=== PATIENT | female | born 1935 | race Caucasian/White ===

== ENCOUNTER 2021-09-02 07:50 | Inpatient (IN) | payer OTHER ==
[~2021-09-02] VITALS: Ht 172.7 cm; Wt 68.5 kg
[2021-09-02 13:15] VITALS: BP 132/64
[2021-09-02] MEDS ORDERED: NAMENDA 5 MG TAB5 M1 PO (14:24)
[2021-09-02] MEDS ORDERED: BUSPIRONE HCL10 MG PO (14:25)
[2021-09-02] MEDS ORDERED: DESYREL150 MG PO (14:26)
[2021-09-02] MEDS ORDERED: METFORMIN HCL500 M3 PO (14:27)
[2021-09-02] MEDS ORDERED: SEROQUEL 25 MG25 MG PO ×2 (14:28→14:32)
[2021-09-02] MEDS ORDERED: LOVENOX40 MG/0.4 PO (14:29)
[2021-09-02] MEDS ORDERED: AMLODIPINE-ATO1 EAC4 PO (14:30)
[2021-09-02] MEDS ORDERED: SERTRALINE HCL100 MG PO (14:31)
--- NOTE | 2021-09-02 14:59 | NUR ---
Pt admitted from [facility] from home being cared for by son/DPOA and . Hx of Covid positive 08/21/21, completed isolation. Son reports pt seen by neurologist in 08/06 and "passed tests with flying colors" but has deteriotated past 2 months with increased agitation, wandering and aggression. Pt also with hx of HTN, DM2. Pt alert and orientated to name only. Confused speech with occassional coherent statements. No speech/behavior suggestive of SI/HI. Breath sounds clear without s/o resp distress. Reg HR auscultated. Color pink with brisk capillary refill and palpable peripheral pulses. No edema noted. Continent of yellow urine. Active bowel sounds over soft, rounded abdomen. Unk last BM. Ambulates with slow, shuffling gait. On fall precautions d/t 2 falls in past week. Able to eat independently. Sitting in day room without s/o distress.
--- NOTE | 2021-09-03 03:41 | NUR ---
PATIENT CARE WAS RESUMED AT 1900. SHE WAS AT THE [facility] AREA AND SHE REQUESTED TO GO TO HER ROOM. SHE WAS ASSISTED TO BED. SHE DENIES PAINS/AVH/SI/HI. LUNGS ARE CLEAR BS ACTIVE X4 QUADS. BED IS LOW, LOCKED AND ALARMED. YELLOW TOP AND SOCKS ARE ON. SHE IS A MINI ASSIST WITH [facility]. SHE TOOK HER MEDDS WHOLE WITH ICE CREAME. [id number] CHECKS ARE ACTIVE CONTINUE CARE
--- NOTE | 2021-09-03 04:10 | NUR ---
PATIENT WAS SEEN SLIDING OUT OF HER RECLINER DURING AM ROUNDS IN HER ROOM AND WAS ASSISTED BACK TO BED. [id number] CHECK IS ONGOING CONTINUE TO MONITOR
[2021-09-03 05:30] LABS: ABSOLUTE NEUTROPHILS 3.4 thou/uL (1.4-8.2); BASOPHILS 0.4 % (0.0-2.0); EOSINOPHILS 3.7 % (0.0-3.0); HEMATOCRIT 37.2 % (37.0-47.0); HEMOGLOBIN 12.4 gm/dL (12.0-15.0); LYMPHOCYTES 18.2 % (24.0-44.0); MCH 29.2 pg (26.0-34.0); MCHC 33.3 g/dL (28.0-37.0); MCV 87.6 fL (80.0-100.0); MONOCYTES 9.4 % (1.0-8.0); PLATELET COUNT 379 thou/uL (150-400); POLYS 68.3 % (36.0-66.0); RBC 4.25 mil/uL (4.20-5.00); RDW 15.2 % (10.5-14.5)
[2021-09-03 06:19] LABS: CHOLESTEROL 187 mg/dL (<200); HDL CHOLESTEROL 68 mg/dL (>40); LDL CHOLESTEROL 89 mg/dL (<100); TC:HDL 2.8 Ratio (Not establshd); TRIGLYCERIDE 152 mg/dL (<150); VLDL 30 mg/dL (<40)
[2021-09-03 06:28] LABS: SERUM ASSESSMENT Clear
[2021-09-03 06:38] LABS: ALBUMIN 3.6 g/dL (3.4-5.0); CALCIUM 9.7 mg/dL (8.5-10.1); CREATININE 1.2 mg/dL (0.6-1.0); POTASSIUM 3.9 mmol/L (3.5-5.1); TOTAL BILIRUBIN 0.3 mg/dL (0.2-1.0); TOTAL PROTEIN 6.8 g/dL (6.4-8.2)
[2021-09-03 09:00] VITALS: BP 160/77
[2021-09-03 10:10] VITALS: BP 160/77
--- NOTE | 2021-09-03 16:15 | NUR ---
Pawel refused her 1500 scheduled seroquel by another RN this afternoon. Pt then refused when this RN also attempted to give crushed in ice cream. Pt has been yelling out, very restless, and on second attempt of trying to give scheudled seroquel, pt tried to throw the ice cream but this RN was able to catch it. Pt was also aggressively grabbing at this RN. Dr. Vance paged and order received for one time dose of zyprexa 7.5mg IM, given per SEP. Pt's nurse Bruna drew.
--- NOTE | 2021-09-03 17:28 | NUR ---
Assumed pt care this morning from overnight shift. Pt presented alert and oriented to self only, and was difficult to reorient to her environment. Pt stated "a little bit" when asked about depression and anxiety. When asked about hallucinations, pt stated that she "saw a little girl last night." When asked about si/hi, pt denied. Last BM 09/01 per pt report. Slight pain in hips reported, but declined medication. Started on diabetic diet in addition to her heart healthy diet today. Metformin and losartan held per WATER SERVER order. No further concerns.
--- NOTE | 2021-09-03 18:44 | NUR ---
JOSH and Dr. Vance participated in a phone call with the Pt's DPOA, Laura Merino [phone]. Laura was able to give some background on the Pt. Pt was born and raised in [place]. Pt has 3 sibilings. 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 Pt has been 2x and has 1 child. Pt has been to her current for 51 years. Pt has had 5 falls over the last 3 years. Pt and her lived at [facility] for 3 years then moved in with her son Laura. Pt has no prior inpatient psychiatric hospital stays. Pt had no outpt mental health services prior to this admission. Laura reported Pt did not have a hx of susbtance abuse or ETOH abuse. Laura stated he would like to place the Pt as he is unable to handle the Pt in the home. Laura was not sure of the Pt's financial situation. JOSH explained Medicaid qualifications and informed a screening could be completed for the Pt. Laura was in agreement. JOSH provided education on how LTC is paid. Laura was confused and believed Medicare paid for LTC. JOSH provided education what Medicare pays for. Laura had no further questions or concerns. JOSH did send a welcome email to laura at [email or web address] JOSH did send an email to Kimber at [facility] to request a Medicaid screening on the Pt. JOSH will continue to follow.
[2021-09-03 19:23] VITALS: BP 120/62
--- NOTE | 2021-09-03 22:43 | NUR ---
At onset of shift nurse manager pt was sitting in bin chair in day room. Pt appeared calm. This shift pt was alert and oriented only to self. Pt stated she did not know the date and pt believed she was in [place]. Pt was somewhat compliant with medication. RN mixed meds in applesauce; pt would spit out applesauce but after a few attempts pt swallowed all medication. Pt was overall calm and pleasant. Pt made several delusional statements and was confused. Pt was restless at times. Pt was put to bed but was observed sitting up in bed pulling at her sheets. RN assisted pt with laying back down. Pt does not answer psych questions; no signs of SI, HI or distress. Pt endorsed pain in her pelvic region. Pt received tylenol with her HS meds. Pt is high fall risk. Fall precautions are in place. Will continue to monitor.
[2021-09-04 06:10] LABS: HEMATOCRIT 32.9 % (37.0-47.0); HEMOGLOBIN 11.3 gm/dL (12.0-15.0); MCH 30.1 pg (26.0-34.0); MCHC 34.2 g/dL (28.0-37.0); MCV 87.8 fL (80.0-100.0); RBC 3.74 mil/uL (4.20-5.00); RDW 15.6 % (10.5-14.5); WBC 7.8 thou/uL (4.0-11.0)
[2021-09-04 06:31] LABS: CALCIUM 9.4 mg/dL (8.5-10.1); CREATININE 1.2 mg/dL (0.6-1.0); POTASSIUM 4.2 mmol/L (3.5-5.1)
[2021-09-04 07:09] LABS: GLYCOHEMOGLOBIN (HGB A1C) 7.4 % (4.8-5.6)
[2021-09-04 12:40] VITALS: BP 116/57
--- NOTE | 2021-09-04 14:31 | NUR ---
Assumed the patient at 0700, patient is alert and oriented to person, pleasant, calm and cooperative. Patient had big BM today using pivot to bedside comode, ate about 50-60% of meals. Sit up in the bin chair most of the day, will continous monitoring.
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
--- NOTE | 2021-09-05 05:30 | NUR ---
Assumed care of pt at 1900. Pt calm et cooperative this shift. Took medications crushed in pudding without difficulty. Ambulates with assistance of gerichair on this shift. VSWNL. Health assessment with no abnormalities noted this shift. Pt denies SI/HI at present time. Socialized with peers in dayroom watching TV until HS. Currently resting in bed with eyes closed. Will continue to monitor per unit protocol.
[2021-09-05 07:00] VITALS: BP 156/66
[2021-09-05 09:42] VITALS: BP 156/66
--- NOTE | 2021-09-05 10:07 | NUR ---
Alert and orientated to person and place. Denies SI/HI. Interative with peers and staff, participating in group. Calm, cooperative and compliant. Took meds crushed in pudding. Brushed teeth and washed face independently when handed items. Breath sounds clear. Reg HR auscultated. Color pink with brisk capillary refill and palpable peripheral pulses. Brief dry with smear of stool. Active bowel sounds over soft, rounded abdomen. 1 staff assist with toileting. Able to bear wt and transfer with guidance. Currently watching TV with peers. No s/o distress.
[2021-09-05 19:15] VITALS: BP 132/104
--- NOTE | 2021-09-05 21:34 | NUR ---
At onset of overnight babysitter pt was sitting calmly in bin chair in day room. This shift pt was alert and oriented to self. Pt knows she is in a hospital but believes she is in [place]. Pt stated the date was "the 2019 and 2019." Pt stated she does have a little anxiety but could not verbalize what was making her anxious. Pt denied depression stating "I don't let things get me down." Pt has trouble finding words and explained to RN that she'll start a sentence but then "loses the words." Pt denied AVH. Pt was compliant with vital signs and meds crushed in ice cream. Later laying in bed pt told RN she couldn't walk, however pt was able to stand and transfer getting from bin chair to bed and pt was able to move legs to reposition herself in bed. Pt is high fall risk. Fall precautions are in place. Will continue to monitor.
[2021-09-06 09:00] VITALS: BP 152/61
[2021-09-06 12:12] LABS: URINE BILIRUBIN NEGATIVE (Negative); URINE BLOOD NEGATIVE (Negative); URINE CLARITY CLEAR; URINE COLOR YELLOW; URINE GLUCOSE-RANDOM* 1+ (Negative); URINE KETONES NEGATIVE (Negative); URINE LEUKOCYTES-REFLEX NEGATIVE (Negative); URINE NITRITE-REFLEX NEGATIVE (Negative); URINE PROTEIN (DIPSTICK) NEGATIVE (Negative); URINE UROBILINOGEN 0.2 E.U./dl (0.2-1.0)
--- NOTE | 2021-09-06 12:25 | NUR ---
Alert and orientated to name only this AM. States she is in [place]. Denies SI/HI. Calm and cooperative, compliant with meds. Took whole this AM. Confused speech. Breath sounds clear. Reg HR auscultated. Color pink with brisk capillary refill and palpable peripheral pulses. Continent of yellow urine per commode this AM with hesistancy approximately 200-300 cc. Active bowel sounds over soft, rounded abdomen. Able to stand and bear wt. Ambulated to room with walker with slow, steady gait. Urinated approximately 200cc with hesistancy. Bladder scan done after void--370 cc. Pt reporting some discomfort with void. Dr. Albarran notified.
[2021-09-06 19:33] VITALS: BP 133/47
[2021-09-06 22:33] VITALS: BP 147/64
[2021-09-06 23:33] VITALS: BP 133/47
--- NOTE | 2021-09-07 02:29 | NUR ---
At onset of aerial sprayer pt was sitting in bin chair in day room. This shift pt was alert and oriented to self. Pt believes she is [place]. Pt appears to know she is in a hospital. Pt was compliant with medications whole and vital signs. Pt talked with RN, again stating that she is frustrated she cannot find words at time. Pt asked for her son's name to be written down. RN wrote the number down and told pt she can call her son in the morning, as it was after 2100. Pt endorsed some anxiety. Denied SI and AVH. Pt is high fall risk. Fall precautions are in place. At approx 1033, pt's bed alarm sounded. RN entered pt's room and observed pt on one knee next to her bed and night stand using a tissue from the tissue box on her night stand. Pt was helped up to sit on her bed. RN assessed pt. Pt denied hitting her head and denied falling. However did have a small bleeding skin tear on her knee from being on the ground. RN cleaned and dressed the skin tear. Pt denied being pain. When asked why she was on the floor pt stated "I eased myself there, but my legs were not strong enough to get back in bed." Post fall protocol was still followed. Steve cano, hospitalist, and studio operations engineer in charge notified.
[2021-09-07 09:05] VITALS: BP 151/74
[2021-09-07 09:21] VITALS: BP 151/74
--- NOTE | 2021-09-07 14:04 | NUR ---
Assumed pt care this morning from overnight shift. Pt presented restless but pleasant during this time, and was frequently redirected to stay in gerichair and assisted with repositioning multiple times. Covered pt with blanket as pt voiced feeling cold. Pt expressed thanks. Pt denied depression and anxiety during this time. Pt denied hallucinations, though could be noted talking to self intermittently. Pt voiced back pain, and was given lidocaine patch per provider order for this that provided partial pain relief. Pt denied si/hi at this time. Pt took all medications crushed in yogurt and tolerated all well. Pt continuously assisted with repositioning, and reminded to use walker if getting up from chair. Due to pt safety concerns, lap lonnie placed on pt, as pt would get out of chair and not know where she wanted to go. Pt would do this frequently, and would not listen to redirection from staff at this time. Assisted with repositioning again, and explained purpose of lab lonnie to pt. Lung sounds clear. Bowel sounds active. No further concerns at this time.
[2021-09-07 16:06] LABS: SYPHILIS AB Non Reactive (Non Reactive)
[2021-09-07 19:22] VITALS: BP 134/57
--- NOTE | 2021-09-08 01:02 | NUR ---
At onset of awake overnight counselor pt was sitting in bin chair in day room. This shift pt was alert and oriented only to self initially. Pt was compliant with medication and vital signs. Pt spoke with RN for some time. RN oriented pt to being in the hospital and pt was surprised. Pt again talked about how she has difficulty finding words. However, while sitting in the day room, pt pointed to other patients and told RN how long each patient had been in the hospital. Pt was able to correctly identify peers that had only been on the unit for one day and another peer that had been on the unit for three days. Pt is able to pay attention to her surroundings. Pt expressed frustration that she has to sit in a chair for so long and is not allowed to move around. RN explained to pt that her safety comes first and her gait is unsteady. RN explained that physical therapy has been working with her some. Pt endorsed anxiety and some depression. Pt became tearful when speaking about how she is worried she won't make it home again and she wants to see her son. Pt apologized to RN for taking up her time and apologized for needed so much assistance. RN assured pt that staff are happy to help her and she should not hestitate to make her needs known. RN offered emotional support. Pt is a high fall risk. Fall precautions are in place. Will continue to monitor.
[2021-09-08 08:05] VITALS: BP 131/78
[2021-09-08 09:27] VITALS: BP 131/78
--- NOTE | 2021-09-08 17:08 | NUR ---
Assumed pt care from overnight shift this am. Pt presented alert and oriented to self and place during this time. Pt denied depression and voiced mild anxiety from being in hospital per self report. Pt denied hallucinations, though could occasionally be noted to speak to self and have moments of less clarity, forgetting where she was and stating that she saw things in corners and that she heard dogs barking at times. Pt denied si/hi at this time. Reported pain in legs and back. Lidocaine patch applied. Spoke to Dr. Albarran- scheduled tylenol started to help with pt pain management. Pt voiced thanks at this time. Pt toileted frequently during shift. UA collected via hat as pt voiced urgency to urinate. Sent to lab. No further concerns at this time.
--- NOTE | 2021-09-08 18:21 | NUR ---
JOSH recieved a call from Kimber at [employer]. Kimber informed she reached out the DPOA. The DPOA stated the Pt had resources and he did not wish to complete a medicaid application. JOSH then reached out to Westley concerning the matter. Westley was confused on recieving a phone call from [employer]. JOSH reminded him of the initial phone call where Westley was unsure of the Pt's finances. Westley stated he could not hear when on that phone call. JOSH encouraged Westley that if that is ever the case he should let us know so that the phone call can be adjusted. JOSH informed that our team wants families to be properly informed through out the Pt's stay on the [facility]. JOSH again asked Westley if he was still intrested in placing the Pt. Westley confirmed the plan. Westley then stated that he needs an update on the Pt and to "know her status". JOSH attempted to provide a status update on the Pt and encouraged Westley to call and speak with the nurse if he had other question concerning the Pt's day to day. Westley stated he has been speaking to the nurses daily. JOSH went on to discuss placement of the Pt. Westley expressed confusion. JOSH explained the placement process to Westley. JOSH gave westley the option of JOSH sending out mass referrals or Westley providing specific facilities for referrals to be sent. Westley stated he would like JOSH to send out mass referrals. Westley also reported working with someone from [facility] on locating placement. JOSH provided emotional support to Westley during this time. There were no other questions or concerns. JOSH will continue to follow
[2021-09-08 19:48] VITALS: BP 116/50
[2021-09-08 19:50] VITALS: BP 116/50
[2021-09-08 20:05] LABS: URINE BILIRUBIN NEGATIVE (Negative); URINE BLOOD NEGATIVE (Negative); URINE CLARITY CLEAR; URINE COLOR YELLOW; URINE GLUCOSE-RANDOM* NEGATIVE (Negative); URINE KETONES NEGATIVE (Negative); URINE LEUKOCYTES-REFLEX NEGATIVE (Negative); URINE NITRITE-REFLEX NEGATIVE (Negative); URINE PROTEIN (DIPSTICK) NEGATIVE (Negative); URINE SPECIFIC GRAVITY >= 1.030 (1.005-1.035); URINE UROBILINOGEN 0.2 E.U./dl (0.2-1.0)
--- NOTE | 2021-09-09 04:44 | NUR ---
[facility] WAS RESUMED AT 1900. SHE WAS SITTING IN THE DAY AREA SOCIALIZING WITH OTHER.SHE IS CONFUSED AND UNDIRECTABLE. TOOK HER MEDS WHOLE. LUNGS ARE CLEAR BS ACTIVE X4 QUAD. BED IS LOW, LOCKED AND ALARMED/ SHE DENIES PAINS/SI/AVH/HI.SHE CONTINUE TRIES TO GET OUT OF BED AND WAS BROUGHT TO THE DAY AREA.ALARME IN PLACE. YELLOW TOP AMD SOCKS ARE ON. CONTINUE CARE
[2021-09-09 07:00] VITALS: BP 148/58
--- NOTE | 2021-09-09 11:24 | NUR ---
Referral sent to the following: [facility]
--- NOTE | 2021-09-09 12:15 | NUR ---
PATIENT ALERT AND ORIENTED X 1 - SITTING IN DINING ROOM - GOOD APPETITE - HAS BACK PAIN DISCOMFORT - SCHEDUED TYLENOL GIVEN - LIDODERM PATCH APPLIED AT 9AM ON LOWER BACK. COMPLIANT WITH MEDICATIONS - BECAME VERY TIRED AFTERWARDS AND STAFF ASSISTED TO BED. PATIENT MUMBLES AND MOANS TO HERSELF. WHEN QUESTIONED DOES NOT ANSWER. SLEPT FOR SEVERAL HOURS AFTER BREAKFAST - AWOKEN FOR LUNCH AND ESCORTED AND ASSISTED TO DINING VEGA. PATIENT NEEDS TO BE MONITORED CLOSELY. FOUND PATIENT SITTING ON COMMODE WHEN GETTING UP PATIENT UP FOR LUNCH. UNSTEADY AND ADVISED PATIENT TO LET STAFF KNOW - PATIENT BLOOD SUGARS WERE 142 AT BREAKFAST AND 97 AT LUNCH. VITALS WNL WHEN TAKEN. WILL CONTINUE TO MONITOR PATIENT FOR SAFETY AND ADDRESS ANY CONCERNS OR NEEDS ACCORDINGLY.
[2021-09-09 18:56] VITALS: BP 128/58
[2021-09-09 19:40] VITALS: BP 128/58
--- NOTE | 2021-09-10 00:17 | NUR ---
PATIENT CARE WAS RESUMED AT 1900. HE IS SHE AMBULATES WITH ASSISTANCE AND WALKER. LUNGS ARE CLEAR BS ACTIVE X4 QUAD. SHE IS CONTININET OF BOWEL AND BLADDER. DENIES PAINS/SI/AVH/HI. ABLE TO VERBALIZE HER CONCERNS.TOOK HER MEDS WHOLE. YELLOW SOCKS AND TOP ARE WON. BED IS LOW, LOCKED AND ALARMED.Q12 MINUTES CHECK ONGOING.
[2021-09-10 10:48] VITALS: BP 117/98
--- NOTE | 2021-09-10 11:53 | NUR ---
PATIENT WAS UP, IN GERICHAIR, AND OUT ON THE UNIT, SITTING IN DAYROOM WHEN CARE ASSUMED. PATIENT IS ALERT AND ORIENTED X 1-2 ABLE TO VOICE NEED. SHE IS FORGETFUL, AND CONFUSED AT TIMES. PATIENT TOOK ALL MEDICATION WHOLE WITHOUT DIFFICULTY, SHE IS EATING MEALS, AND DRINKING FLUID WELL. PATIENT DENIES SUICIDAL/HOMICIDAL IDEATION, FOR DEPRESSION, SHE STATES "SOME, EVERYONE HAS DEPRESION ONCE IN A WHILE", DENIES ANXIETY. RATES BACK PAIN 8/, PAIN PATCH APPLIED, PATIENT GETS SCHEDULE TYLENOL TO BACK PAIN. PATIENT HAD BOWEL MOVEMENT THIS MORNING. AFFECT SAD, MOOD IS CALM, COOPERATIVE WITH CARE. SON (SUNNY) CALLED FOR UPDATE, UPDATE PROVIDED. PATIENT IS CURRENTLY EATING LUNCH, ABLE TO FEED SELF. NO SIGN OF ACUTE DISTRESS NOTED AT THIS TIME, WILL MONITOR FOR SAFETY.
--- NOTE | 2021-09-10 16:22 | NUR ---
JOSH recieved a VM from Jackelin Anderson at [facility]. Jackelin stated that they are able to accept the Pt. JOSH did call back concerning the matter. JOSH was unable to speak with Jackelin and left a message requesting a call back. JOSH also recieved a call from Apolonia, , from [facility] [place]. Apolonia requested a Zoom assessment with the Pt. This was set up for 09/11/2021 @10am. JOSH did call the Pt's DPOA, Westley, concerning the matter. JOSH left a message requesting a call back on the matter. JOSH will follow up
[2021-09-10 19:50] VITALS: BP 117/98
--- NOTE | 2021-09-11 02:56 | NUR ---
PATIENT CARE WAS RESUMED AT 1900.SHE IS SITTING AT THE TABLE IN DAY AREA. IS ABLE TO COMMUNICATE HER NEEDS.SHE TOOK HER MEDS WHOLE. DENIES PAINS/SI/AVH/HI. LUNGS ARE CLEAR BS ACTIVE X4 QUADS. SHE IS CONTININET OF BOWEL AND BLADDER.YELLOW TOP AND SOCKS ARE ON. [id number] CHECK IS ON GOING. BED IS LOW , LOCKED AND ALARMED.
[2021-09-11 07:45] VITALS: BP 171/79
[2021-09-11 09:57] VITALS: BP 143/94
--- NOTE | 2021-09-11 11:40 | NUR ---
RESUMMED CARE FROM OVERNIGHT SHIFT THIS AM, PATIENT ALERT ORIENTED ALERT TO SELF AND SITUATION. PATIENT ATE BREAKFAST TOOK MEDICATION WITHOUT INCIDENCE. PATIENT DENIES SI/HI/AH/VH AT PRESENT PATIENT STATES SHE HAS HIGH DEPRESSION. SHE RATES A 11 AND ANXIETY RATES IT AT A 11. PATIENTS ABDOMEN SOFT BOWEL SOUNDS PRESENT. PATIENTS LUNGS CLEAR PATIENT IS COMPLAINING OF LOWER SACRAL PAIN IN BACK. PATIENT GETS SCHEDULED TYLENOL AND GETS A LIDOCAINE PATCH FOR PAIN. PATIENT CALM COOPERATIVE NO BEHAVIORS NOTED WILL CONTINUE TO MONITOR PATIENT FOR SAFETY AND BEHAVIORS.
--- NOTE | 2021-09-11 16:19 | NUR ---
Pt completed a video assessment with [facility]. Marcia stated they would be able to accept the Pt Friday 09/15. Apolonia sent over the physician assessment form for completion. The form was completed and emailed back to Apolonia. JOSH will follow up with Marcia concerning discharge on Wednesday.
[2021-09-11 19:50] VITALS: BP 136/58
--- NOTE | 2021-09-12 05:13 | NUR ---
Assumed care of pt at 1900. Pt calm et cooperative this shift. Took medications crushed in pudding without difficulty. Ambulates with assistance of gerichair. Socialized with peers in dayroom watching TV until HS. VSWNL. Health assessment with no abnormalities noted this shift. Pt denies SI/HI at present time. Currently resting in bed with eyes closed. Will continue to monitor per unit protocol.
[2021-09-12 09:48] VITALS: BP 134/76
--- NOTE | 2021-09-12 11:13 | NUR ---
JOSH and Dr. Carlson spoke with Westley concerning discharge. Westley was at [facility] making the final arrangements for the Pt. Apolonia was also in the room with Westley. Apolonia informed they are able to accept on 09/15 and the Pt would need to be at the facility by 2pm. Westley requested the Pt be transported. Discharge was set for 09/15/2021 @ 1130 am. Pt will be transported via [facility]. The tracking #[id number].
--- NOTE | 2021-09-12 11:30 | NUR ---
Alert and orientated to name only. Denies SI/HI. Confused speech at times, other times coherent. Breath sounds clear. Reg HR auscultated. Color pink with brisk capillary refill and palpable peripheral pulses. Active bowel sounds over soft, rounded abdomen. Continent of yellow urine per commode. Able to stand and take several steps without difficulty, steady gait. Currently sitting in day room without s/o distress.
[2021-09-12 19:51] VITALS: BP 112/51
--- NOTE | 2021-09-13 05:44 | NUR ---
Assumed care of pt at 1900. Pt calm et cooperative this shift. Took medications crushed in pudding without difficulty. Ambulates with assistance of gerichair. Socialized in dayroom with peers watching TV until HS. VSWNL. Health assessment with no abnormalities noted this shift. Pt denies SI/HI at present time. Currently resting in gerichair with eyes open in dayroom. Will continue to monitor per unit protocol.
[2021-09-13 10:43] VITALS: BP 167/75
[2021-09-13 11:18] VITALS: BP 124/60
--- NOTE | 2021-09-13 11:37 | NUR ---
Alert and orientated to person and time. Conversive at times. Denies SI/HI. Breath sounds clear. Reg HR auscultated. Color pink with brisk capillary refill and palpable peripheral pulses. Yellow urine per commode. Active bowel sounds over soft rounded abdomen. States pain is gone. Ambulates with slow steady gait but spends most of time in chair. Currently sitting in dining room without s/o distress.
[2021-09-13 20:06] VITALS: BP 136/50
--- NOTE | 2021-09-14 03:10 | NUR ---
PT HAS BEEN RESTING/SLEEPING IN BED WITHOUT ACUTE DISTRESS.PLEASANTLY CONFUSED.A/O TO SELF.FOLLOWS COMMMANDS APPROPRIATELY.DENIES SUICIDAL THOUGHTS.DENIES PAIN.HELD MIDNIGHT DOSE.AMBULATED WITH STAFF TO THE ROOM.ASSESSMENT COMPLETED DOCUMENTED.
[2021-09-14 08:44] VITALS: BP 162/75
[2021-09-14 08:53] VITALS: BP 162/75
--- NOTE | 2021-09-14 11:05 | NUR ---
RESUMMED CARE FROM OVERNIGHT SHIFT THIS AM, PATIENT IN ROOM RESTING QUIET. PATIENT'S HYGIENE DONE BROUGHT TO DAY ROOM FOR BREAKFAST, ATE WELL TOOK MEDICATION WITHOUT INCIDENCE. PATIENT ALERT ORIENTED TO SELF AND SITUATION, PATIENT DENIES SI/HI/AH/VH AT PRESENT. PATIENTS ABDOMEN SOFT BOWEL SOUNDS PRESENT PATIENTS LUNGS CLEAR. PATIENT CALM COOPERATIVE PARTICIPATES IN GROUPS INTERACTS WITH OTHER PATIENTS APPROPRIATELY. PATIENT HAS LOWER SACRAL BACK PAIN SHE GETS LIDOCAINE PATCH AND SCHEDULED TYLENOL. WILL CONTINUE TO MONITOR PATIENT FOR SAFETY AND BEHAVIORS.
--- NOTE | 2021-09-14 11:44 | NUR ---
CARDIAC EXERCISE PHYSIOLOGIST WEEKLY NOTE---PATIENT APPEARS CALM AND QUIET MAJORITY OF THE TIME. PATIENT ATTENDS GROUPS CONSISTENTLY BUT SOMETIMES SHE DOES NOT ALWAYS PROVIDE FULL PARTICIPATION DUE TO NOT BEING ABLE TO HEAR THAT WELL BUT SHE DOES TRY HER BEST TO DO SO.
--- NOTE | 2021-09-14 16:25 | NUR ---
Updates emailed to Apolonia at [facility] [place]
[2021-09-14 19:31] VITALS: BP 109/53
--- NOTE | 2021-09-15 05:21 | NUR ---
Assumed care of patient from Jennifer VIZCARRA mid-shift. Patient appeared to be sleeping at that time. She is calm and cooperative. No behaviors evident this shift. Patient was observed on the unit earlier and appeared calm and pleasant in her interactions with others. Patient has not voiced SI/HI/AVH. She is compliant with medications.
[2021-09-15 08:00] VITALS: BP 153/76
[2021-09-15] MEDS ORDERED: FLOMAX0.4 MG PO (08:35)
[2021-09-15] MEDS ORDERED: FENOFIBRATE160 MG PO (08:35)
[2021-09-15] MEDS ORDERED: COZAAR100 MG PO (08:36)
[2021-09-15] MEDS ORDERED: NORVASC10 MG PO (08:36)
[2021-09-15] MEDS ORDERED: SEROQUEL 100 M100 MG PO (08:37)
[2021-09-15] MEDS ORDERED: TRAZODONE HCL50 MG PO (08:37)
[2021-09-15] MEDS ORDERED: SERTRALINE HCL25 M1 PO (08:37)
[2021-09-15] MEDS ORDERED: NAMENDA 5 MG TAB5 M1 PO (08:38)
[2021-09-15] MEDS ORDERED: STIMULANT LAXA1 EACH PO (08:38)
[2021-09-15] MEDS ORDERED: METFORMIN HCL500 MG PO (08:39)
[2021-09-15] MEDS ORDERED: TRADJENTA5 MG PO (08:39)
[2021-09-15] MEDS ORDERED: OXYBUTYNIN 5 MG5 M2 PO (08:40)
[2021-09-15 08:52] VITALS: BP 156/76
--- NOTE | 2021-09-15 11:40 | NUR ---
PT ALERT AND ORIENTED TIMES THREE. PT TEARFUL THIS MORNING STATING SHE WANTED TO GO HOME. VSS. PT DENIES SI/HI/AH/VH. PT C/O NAUSEA PRN MEDICATIONS GIVEN WITH GOOD RELEIF. PT INTERACTS WELL WITH STAFF AND PEERS. PT TOLERATES MEDS AND MEALS. PLANS TO DISCHARGE TODAY.
--- NOTE | 2021-09-16 08:33 | D ---
[facility] [place] [address] DISCHARGE SUMMARY Name: AMOL CONLEY Room #: 52-B [facility] IN M.R.#: [id number] Admission: 09/02/21 Attend Phys: Sajan Vance DO Discharge: 09/15/21 Date of : 39 Report #: [id number] THIS REPORT FOR: cc: FAM - Family physician unknown FAM - Family physician unknown Sajan Vance DO ~ DATE OF SERVICE: 09/15/2021 INPATIENT PSYCHIATRIC DISCHARGE SUMMARY ATTENDING PSYCHIATRIST: Sajan Vance D.O. MACHINE FEEDER: Meir Armijo M.D. DISCHARGE DIAGNOSES: 1. F02.81, unspecified dementia with behavioral disturbance. 2. Alzheimer's disease, likely. MEDICAL COMORBIDITIES: As follows: 1. Acute on chronic renal failure, resolved. 2. Status post COVID-19 infection. 3. Positive diabetes, A1c 7.1, on metformin. 4. Recent hypokalemia, hypomagnesemia. 5. Constipation, recently requiring a Fleet enema. The patient is discharging to [facility], psychiatric and medical care by receiving facility. She should be on an 1800-calorie daily diabetic diet, Accu-Cheks in the morning. ACTIVITY: She can ambulate with a 4-wheeled walker and min assist. Recommend Physical Therapy evaluation at nursing facility. DISCHARGE MEDICATIONS: Tamsulosin 0.4 mg oral daily for urinary incontinence; fenofibrate 160 mg oral daily for hypertriglyceridemia; amlodipine 10 mg oral daily for hypertension, hold if systolic BP is less than 100 mmHg; losartan 100 mg oral daily for hypertension and kidney protection; sertraline 75 mg oral daily for depression, this was overall decreased on admission and so started on Seroquel; trazodone 125 mg oral at bedtime p.r.n. sleep; Seroquel fumarate 100 mg oral daily at 0900, 1500, 2100; memantine 5 mg oral twice per day; senna docusate 2 tablets oral twice per day for bowel motility, hold if diarrhea; metformin 500 mg oral twice daily with meals for hyperglycemia; Tradjenta, which is linagliptin 5 mg oral daily for hyperglycemia and oxybutynin chloride 5 mg oral daily for incontinence. DISCHARGE LABORATORY DATA: This admission on 09/04, hematology: White count 7.8, H and H 7.3 and 32.9, platelet count 311. Chemistries from 09/04, sodium 139, potassium 4.2, chloride 103, bicarbonate 29, anion gap 7, BUN 29, [address] [address] DISCHARGE SUMMARY Name: AMOL CONLEY Room #: 52-B [facility] IN M.R.#: [id number] Admission: 09/02/21 Attend Phys: Sajan Vance, Discharge: 09/15/21 Date of : 39 Report #: [id number] creatinine 1.2, estimated GFR 43, glucose 157. A1c 7.4, calcium 9.4. Total bilirubin 0.3, AST 38, ALT 60, alkaline phosphatase 72. Total protein 6.8, albumin 3.6. Triglycerides 152, cholesterol 187, LDL 89, and HDL 68. Vitamin D is 41.9. TSH 1.372, which is normal. Urinalysis this admission was clean on the 09/08. Syphilis serology was nonreactive. We did not do COVID test since she was recently positive. REASON FOR ADMISSION: Back on 09/02 or so, an 85-year-old female transferred from [facility] for concerns of psychosis, agitation, suspected dementia. The patient had been attempting to leave the residence. She gets frustrated about word finding problems, had 5 falls in recent months. Family was anticipating her needing placement. HOSPITAL COURSE: Admitted to Geriatric Psychiatry Unit. The patient had some difficulty seating, we utilized a [employer] cusion. Physical therapy was consulted. Sertraline was titrated first 37.5 mg 3 times a day and up to 75 mg 3 times a day. The patient's mood lability improved. for placement, Medicaid application had to be undertaken. Her mood stayed stable on the day of discharge. There was no SI, no HI. Weight 68.549 kilograms. VITAL SIGNS: Temperature 36.5, pulse 73, respirations 18, BP 153/70, O2 sat 95%. MUSCULOSKELETAL: Seated in a Bina chair, yellow fall prevention shirt on wearing glasses. MENTAL STATUS EXAMINATION: Well-developed, age-appearing, somewhat ill-appearing female. Attention and concentration limited. Speech normal in rate and tone. Thought process, linear and goal directed. Thought content focused on present. Denied SI, HI. mood affect, "ok" euthymic, congruent No auditory or visual type hallucinations. Denied hopelessness, helplessness. Memory not formally tested. Insight and judgment were limited. Fund of knowledge, no greater than average. PROGNOSIS: For this patient is guarded given age of 85, having neurodegenerative disorder, sustained placement. <ELECTRONICALLY SIGNED> By: Sajan Vance, 09/16/21 [id number] T: 02/1820 Sajan Vance, DO /nt
== END 2021-09-15 11:20 | DRG 57 ==
LOC: SBH 07:50
PROVIDERS: Nurse Practitioner; Pediatrics; ADMIT Psychiatry & Neurology Psychiatry; ATTEND Psychiatry & Neurology Psychiatry
DX: G30.9 Alzheimer's disease, unspecified (principal); F02.81 Dementia in other diseases classified elsewhere, unspecified severity, with behavioral disturbance; N17.9 Acute kidney failure, unspecified; N18.9 Chronic kidney disease, unspecified; E87.5 Hyperkalemia; E83.42 Hypomagnesemia; R39.81 Functional urinary incontinence; F29 Unspecified psychosis not due to a substance or known physiological condition; E11.22 Type 2 diabetes mellitus with diabetic chronic kidney disease; R39.15 Urgency of urination; R39.11 Hesitancy of micturition; K59.00 Constipation, unspecified; I12.9 Hypertensive chronic kidney disease with stage 1 through stage 4 chronic kidney disease, or unspecified chronic kidney disease; R26.9 Unspecified abnormalities of gait and mobility; K59.09 Other constipation; F31.9 Bipolar disorder, unspecified; Z86.16 Personal history of COVID-19; Z09 Encounter for follow-up examination after completed treatment for conditions other than malignant neoplasm
CPT/HCPCS: 10880